=== PATIENT | female | born 1985 | race American Indian/Alaskan Native ===

== ENCOUNTER 2017-10-14 06:11 | Day surgery (SDC) | payer MEDICAID ==
[2017-10-12 10:19] LABS: Basophils % (Auto) 0.7 % (0.0-1.8); Eosinophils # (Auto) 0.1 K/mm3 (0.0-0.4); Eosinophils % (Auto) 1.2 % (0.0-4.3); Hematocrit 35.2 % (30.3-42.9); Hemoglobin 11.4 gm/dl (10.1-14.3); Lymphocytes # (Auto) 2.2 K/mm3 (1.2-5.4); Lymphocytes % (Auto) 38.4 % (13.4-35.0); Mean Corpuscular HGB Conc 32 % (30-34); Mean Corpuscular Volume 72 fl (79-97); Monocytes # (Auto) 0.5 K/mm3 (0.0-0.8); Monocytes % (Auto) 8.4 % (0.0-7.3); Red Blood Count 4.89 M/mm3 (3.65-5.03); Red Cell Distribution Width 15.5 % (13.2-15.2)
[2017-10-12 10:20] LABS: Mean Corpuscular Hemoglobin 23 pg (28-32); Platelet Count 67 K/mm3 (140-440)
[2017-10-12 10:43] LABS: BUN/Creatinine Ratio 15; Blood Urea Nitrogen 9 mg/dL (7-17); Calcium 9.1 mg/dL (8.4-10.2); Hemolysis Index 8
--- NOTE | 2017-10-12 12:43 | Anesthesia Consultation ---
Anesthesia Consult and Med Hx Date of service: 10/12/17 - Airway Anesthetic Teeth Evaluation: Good ROM Head & Neck: Adequate Mental/Hyoid Distance: Adequate Mallampati Class: Class II Intubation Access Assessment: Probably Good - Pulmonary Exam CTA: Yes - Cardiac Exam Cardiac Exam: RRR - Pre-Operative Health Status ASA Pre-Surgery Classification: ASA3 Proposed Anesthetic Plan: General (pt has cardiomyopathy, EF 40%, No GERD, Take carvedilol in AM, hold losartan) - Pulmonary Hx Asthma: Yes (As a child) - Cardiovascular System Hx Hypertension: Yes - Central Nervous System Hx Psychiatric Problems: No - Hematic Hx Anemia: Yes - Other Systems Hx Cancer: No
--- NOTE | 2017-10-13 20:28 | History and Physical Report ---
History of Present Illness Date of examination: 10/10/17 History of present illness: Patient has been reassessed/reevaluated. H&P has been reviewed. No interval changes. Patient desires sterilization due to medical condition.Discuss the permanency of sterilization. High risk of regret and 0.5 to 1% risk of failure. Discussed the different risk of abdominal versus vaginal approaches. Information given patient desires laparoscopic tubal ligation. Vital Signs: Patient Profile: 32 Years Old Female LMP: 10/07/2017 Height: 65 inches (165.10 cm) Weight: 235 pounds (106.82 kg) BMI: 39.10 BSA: 2.12 Menstrual History: LMP (date): 10/07/2017 Current Method of Contraception: None Past History : 5 Term Births: 3 Premature Births: 0 Living Children: 3 Para: 3 Mult. Births: 0 Prev : 1 Prev. attempt? none Aborta: 2 Elect. Ab: 2 Spont. Ab: 0 Ectopics: 0 # 1 Delivery date: 04/05/2000 Weeks Gestation: 40 labor: no Delivery type: Hours of labor: 7 Anesthesia type: IV Delivery location: [place] Infant Sex: Male weight: 7-2 Name: Shane # 2 Delivery date: 10/04/2006 Weeks Gestation: 41 Delivery type: Hours of labor: 22 Anesthesia type: epidural Delivery location: [place] Sex: Female weight: 9-3 Name: Arvindjanna Comments: induction Shoulder dystocia Erb's Palsy # 3 Delivery date: 2008 Delivery type: EAB # 4 Delivery date: 06/19/2010 Weeks Gestation: 38 Delivery type: Anesthesia type: spinal Delivery location: [place] Infant Sex: Female weight: 7-6 Name: briana Comments: Elective C/S PP cardiomyopathy 13 day hospitalization # 5 Delivery date: 08/05/2017 Weeks Gestation: 19 Delivery type: EAB Comments: Due to matenal medical condition [employer] History Operations: (2010) Abnormal PAP: negative Uterine Anomaly: negative Infection History HIV Risk Eval: yes Personal hx. of genital herpes: no Hx of STD: Trich Current Allergies (reviewed today): No known allergies Past Medical History: Hypertension (2010) Diabetes (2013) ITP (2012) Congestive Heart Failure (2010) cardiomyopathy Past Surgical History: (2010) Social History: Patient is unemployed Risk Factors: Smoked Tobacco Use: Never smoker Smokeless Tobacco Use: Never Passive smoke exposure: no Drug use: no HIV high-risk behavior: yes Alcohol use: no Exercise: no Seatbelt use: 100 % General Denies fever, chills, sweats, anorexia, fatigue, weakness, malaise, weight loss and sleep disorder. Denies vaginal discharge, incontinence, dysuria, hematuria, urinary frequency, amenorrhea, menorrhagia, abnormal vaginal bleeding, pelvic pain, genital sores, decreased libido, painful periods, painful sex, urinary urgency, hot flashes, vaginal dryness, vaginal itching and vaginal odor. CV Complains of dyspnea on exertion. Denies chest pains, palpitations, syncope, orthopnea, PND and peripheral edema. Resp Denies cough, dyspnea at rest, excessive sputum, hemoptysis, wheezing and pleurisy. GI Denies nausea, vomiting, diarrhea, constipation, change in bowel habits, abdominal pain, melena, hematochezia, jaundice, gas/bloating, indigestion/ heartburn, dysphagia and odynophagia. Breast Denies left breast lump, right breast lump, nipple discharge, bloody discharge from nipple, breast pain, abnormal mammogram and breast enlargement. Psych Denies depression, anxiety, irritability and mood swings. Past History Past Medical History: other (see HPI) Past Surgical History: Other (she HPI) Social history: other (see HPI) Family history: other (see HPI) Medications and Allergies Allergies Allergy/AdvReac Type Severity Reaction Status Date / Time No Known Allergies Allergy Unverified 10/11/17 15:07 Home Medications Medication Instructions Recorded Confirmed Last Taken Type Carvedilol [Coreg] 25 mg PO BID 10/12/17 10/12/17 10/14/17 06:10 History Furosemide [Lasix] 20 mg PO PRN PRN 10/12/17 10/14/17 10/13/17 History Valsartan [Diovan] 40 mg PO BID 10/12/17 10/14/17 10/13/17 History metFORMIN [Glucophage] 500 mg PO BID 10/12/17 10/12/17 10/14/17 06:10 History Active Meds: Active Medications Lactated Ringer's (Lactated Ringers) 1,000 mls @ 100 mls/hr IV DIRECT JOSE Midazolam HCl (Versed) 2 mg IV PREOP NR Stop: 10/14/17 23:59 Review of Systems Constitutional: other (see HPI) Exam - Physical Exam Narrative exam: HEENT: normocephalic, no lesions or deformities Neck/Thyroid: supple, thyroid normal Skin no significant abnormal lesions or rashes .Tatoo(s) are present Chest: respiratory effort normal, clear to auscultation Breasts: skin/areolae normal, no masses, no nipple discharge, no erythema/warmth /tenderness, and axillae normal. CV: regular, normal S1-S2, no murmur, no rub, no gallop Abdomen: obese normal bowel sounds, soft, nontender, no HSM Well healed pfannenstiel scar Musculoskeletal: grossly normal ROM in joints, no joint tenderness or muscle weakness Neuro: no gross anomalities Extremities: no clubbing, cyanosis, or edema .Tatoo(s) are present [employer] Exams Vulva/Vagina: No lesions, normal BUS, normal rugae Cervix: No lesions; no cervical motion tenderness Uterus: unable to palpate due to obesity Adnexae: unable to palpate due to obesity Rectovaginal: exam defered - Constitutional Vitals: Temp Pulse Resp BP Pulse Ox 98.6 F 72 18 140/82 10/12/17 09:40 10/12/17 09:40 10/12/17 09:40 10/12/17 09:40 Results - Labs CBC & Chem 7: 10/12/17 09:50 10/12/17 09:50 Assessment and Plan - Patient Problems (1) Sterilization Current Visit: No Status: Acute Plan to address problem: Discuss the risks of the surgery including infection, bleeding possibly heavy enough to require a blood transfusion, possible damage to adjacent organs. Discuss permanent nature of the procedure and the 1% failure rate. Discuss of possibility of laparotomy needed (2) Cardiomyopathy Current Visit: No Status: Acute Qualifiers: Cardiomyopathy type: unspecified Qualified Code(s): I42.9 - Cardiomyopathy , unspecified Plan to address problem: with this patient condition of cardiomyopathy could be life- threatening, therefore recommendation for sterilization. Patient has obtained clearance from her enamel shader to proceed with surgery
[~2017-10-14 06:11] MED LIST: VERSED IV NR
[2017-10-14] MEDS ORDERED: NACL BACTERIOSTATIC INFILTRATI ONE (06:36)
[2017-10-14] MEDS: LACTATED RINGERS 1,000 ML IV SCH ×2 (06:50→10:22)
[2017-10-14] MEDS ORDERED: DILAUDID ONE (07:22)
[2017-10-14] MEDS ORDERED: DIPRIVAN 10 MG/ML IV ONE (07:23)
[2017-10-14] MEDS ORDERED: XYLOCAINE MPF 2% ONE (07:23)
[2017-10-14] MEDS ORDERED: MARCAINE 0.5% 30 ML INFILTRATI ONE (07:26)
[2017-10-14] MEDS ORDERED: NACL 0.9% IR ONE (08:10)
[2017-10-14] MEDS ORDERED: MARCAINE 0.5% INFILTRATI ONE (08:10)
[2017-10-14] MEDS ORDERED: TORADOL ONE (08:20)
[2017-10-14] MEDS ORDERED: ZOFRAN ONE (08:20)
[2017-10-14] MEDS ORDERED: BLOXIVERZ ONE (08:20)
[2017-10-14] MEDS ORDERED: ROBINUL ONE (08:20)
[2017-10-14] MEDS ORDERED: SUBLIMAZE ONE (08:48)
--- NOTE | 2017-10-14 08:51 | Operative Report ---
Operative Report Operative Report: Pre-operative diagnosis: Patient desires permanent sterilization Post-operative diagnosis: Same Procedure name(s): Laparoscopic bilateral tubal ligation with Falope-Rings Surgeon: Denver López MD Brickmason: [] Anesthesia: General endotracheal EBL: Minimal Complications: None Findings: Patient with uterus approximately 8-10 weeks in size with normal fallopian tubes bilaterally Specimen(s): None Patient was brought in the operating room. General anesthesia was induced without difficulty. She was placed in dorsal lithotomy position. Prepped and draped in usual sterile manner. Her urinary bladder with was emptied with a red rubber catheter. Speculum placed in her vagina and Sargis uterine manipulator was placed for uterine manipulation. Attention was then switched to the patient's abdomen. An infra-umbilical incision was made with a scalpel. This incision was spread with a hemostat. A 5 mm trocar was placed in this incision while lifting high the abdominal wall. Intra-abdominal presence was verified directly with the laparoscope. The patient was then insufflated to approximately 3 L of CO2 gas. The patient's findings as noted above. An accessory puncture was made suprapubically. The 8 mm trocar was placed through this incision under direct visualization with no evidence of internal organ damage. Each of the fallopian tube were identified by its fimbriated end. A portion approximately 1-2 cm from each cornua was grasped with the Falope ring applicator. Falope-Rings were placed without any difficulty bilaterally. At this time all instruments were removed. The patient was deinsufflated. The skin incisions were closed subcuticular with 4-0 Vicryl. Marcaine was given subcuticularly for postoperative pain relief. The patient tolerated procedure well. She was awakened in the operating room and accompanied to the recovery room in good condition.
--- NOTE | 2017-10-14 08:53 | Short Stay Summary ---
Short Stay Documentation Date of service: 10/14/17 - History H&P: dictated Past Medical History: other (see HPI) Past Surgical History: Other (she HPI) Social history: other (see HPI) - Allergies and Medications Current Medications: Allergies No Known Allergies Allergy (Unverified 10/11/17 15:07) Home Medications Medication Instructions Recorded Confirmed Last Taken Type Carvedilol [Coreg] 25 mg PO BID 10/12/17 10/12/17 10/14/17 06:10 History Furosemide [Lasix] 20 mg PO PRN PRN 10/12/17 10/14/17 10/13/17 History Valsartan [Diovan] 40 mg PO BID 10/12/17 10/14/17 10/13/17 History metFORMIN [Glucophage] 500 mg PO BID 10/12/17 10/12/17 10/14/17 06:10 History Active Medications Lactated Ringer's (Lactated Ringers) 1,000 mls @ 100 mls/hr IV DIRECT JOSE Last Admin: 10/14/17 06:50 Dose: 100 mls/hr Midazolam HCl (Versed) 2 mg IV PREOP NR Stop: 10/14/17 23:59 Last Admin: 10/14/17 07:00 Dose: 2 mg - Brief post op/procedure progress note Date of procedure: 10/14/17 (see dictated operative note) Condition: stable - Hospital course Hospital course: Patient was admitted underwent the above him procedure without any complications. Patient will be discharged with follow-up in office in 1-2 weeks for postop check. - Disposition Condition at discharge: Good Disposition: DC-01 TO HOME OR SELFCARE - Discharge Diagnoses (1) Sterilization Status: Acute (2) Cardiomyopathy Status: Chronic Qualifiers: Cardiomyopathy type: unspecified Qualified Code(s): I42.9 - Cardiomyopathy , unspecified Short Stay Discharge Plan Activity: advance as tolerated Diet: regular Wound: open to air Additional Instructions: Patient office for fever chills nausea vomiting or pain uncontrolled by pain relief. Patient instructed no heavy lifting. Follow up with: ROBSON CERDA MD [Primary Care Provider] - 7 Days Prescriptions: oxyCODONE /ACETAMINOPHEN [Percocet 5/325 mg] 1 - 2 tab PO Q4H PRN #30 tablet PRN Reason: Pain, Moderate
[2017-10-14] MEDS ORDERED: ZOFRAN IV PRN ×2 (09:30→09:58)
[2017-10-14] MEDS ORDERED: DILAUDID IV PRN (09:58)
--- NOTE | 2017-10-14 09:59 | Post Anesthesia Evaluation ---
- Post Anesthesia Evaluation Patient Participated: Yes Airway Patent: Yes Stable Respiratory Function: Yes Nausea/Vomiting: No Temp > 96.8F: Yes Pain Manageable: Yes Adequeate Hydration: Yes Anesthesia Complications: No
--- NOTE | 2017-10-14 09:59 | Anesthesia Day of Surgery ---
Anesthesia Day of Surgery - Day of Surgery Patient Examined: Yes Patient H&P Reviewed: Yes Patient is NPO: Yes
[2017-10-14 12:45] VITALS: BP 154/83
== END 2017-10-14 11:20 | disposition home or self-care (01) ==
LOC: OR 06:11
PROVIDERS: ATTEND Obstetrics & Gynecology
DX: Z30.2 Encounter for sterilization (principal); I10 Essential (primary) hypertension; J45.909 Unspecified asthma, uncomplicated; E11.9 Type 2 diabetes mellitus without complications; Z79.899 Other long term (current) drug therapy; Z98.890 Other specified postprocedural states; Z79.84 Long term (current) use of oral hypoglycemic drugs
CPT/HCPCS: 36415; 58671; 80048; 82962; 84703; 85025; J1170; J1885; J2250; J2405; J2704; J2710; J3010; J7120

== ENCOUNTER 2019-06-23 11:59 | Emergency (ER) | payer MEDICAID ==
[2019-06-23 12:09] VITALS: BP 151/77
--- NOTE | 2019-06-23 12:14 | Event Note ---
ED Screening Note ED Screening Note: 34 yo presents with left breast absess. This initial assessment/diagnostic orders/clinical plan/treatment(s) is/are subject to change based on patients health status, clinical progression and re- assessment by fellow clinical providers in the ED. Further treatment and workup at subsequent clinical providers discretion. Patient/guardian urged not to elope from the ED as their condition may be serious if not clinically assessed and managed. Initial orders include: needs exam
== END 2019-06-23 14:55 | disposition left against medical advice (07) ==
LOC: ED 11:59
DX: N61.1 Abscess of the breast and nipple (principal); Z53.21 Procedure and treatment not carried out due to patient leaving prior to being seen by health care provider